=== PATIENT | female | born 1970 | race Caucasian/White ===

== ENCOUNTER 2019-11-22 17:53 | Observation (INO) | payer OTHER, SELFPAY ==
[2019-11-22] VITALS (11 sets, daily range): BP systolic 101–133; BP diastolic 57–98; PULSE 79–124; RESP 14–24; TEMP 36.8–36.9; O2SAT 98–100; BMI 30.9
--- NOTE | 2019-11-22 18:07 | ED_ITS ---
Entered by Niyah Batres, acting as scribe for Mena Wetzel HPI - Chest Pain General: Chief Complaint: Chest Pain Stated Complaint: high bp Time Seen by Provider: 11/22/19 18:06 Source: patient Mode of arrival: ambulatory Limitations: no limitations History of Present Illness: HPI narrative: 49 yo Female presents to ED with complaint of chest pain and chest heaviness. Pt states that she has had intermittent heaviness in her chest for a few weeks. Pt states that her chest pain feels like needles and lasts for a few minutes at a time. Pt states that the pain has increased over the past 2 weeks. MD complaint: chest pain and chest heaviness Onset (ago): week(s) Timing of current episode: episodic, increasing and still present Onset: during rest Pain location: left chest Pain radiation: left shoulder Quality: heaviness and other (needles) Relieving factors: nothing Exacerbating factors: nothing Associated symptoms: Reports diaphoresis, dyspnea and nausea; Deny palpitations, syncope or vomiting Review of Systems General: Reports: other (negative unless marked) Const: Reports: diaphoresis Eyes: Denies: change in vision or blurry vision ENMT: Denies: throat pain, painful swallowing, hoarseness, ear pain, ear discharge, Change in hearing or nasal discharge Card: Reports: chest pain; Denies: palpitations, irregular heart rhythm, syncope, pre-syncope, shortness of breath on exertion or shortness of breath when lying down Resp: Reports: shortness of breath GI: Reports: nausea; Denies: vomiting : Denies: flank pain, painful urination, urinary frequency, urinary urgency, decreased urine ouput, urinary incontinence or blood in urine Musc: Denies: neck pain, back pain, extremity pain, extremity swelling, joint pain, joint swelling, joint warmth or joint stiffness Skin/Breast: Denies: rash, skin tenderness or yellow skin Neuro: Denies: headache, numbness in extremities, weakness in extremities, changes in sensation, lack of coordination, difficulty walking, dizziness, vertigo or confusion Endo: Denies: excessive thirst, tired all the time, cold intolerance, excess sarahi sweating, flushing or hot flashes Atul/Lymph: Denies: easy bruising, easy bleeding, petechiae or enlarged lymph nodes All/Imm: Denies: hives, throat swelling, tongue swelling, facial swelling or acute wheezing PFSH ED PFSH: Statuses (acute, chronic, etc) shown below reflect problem list status as previously entered and may not be historically accurate Social History Smoking and tobacco status: current some day smoker cigarettes [ Other cigarette details: 1 cigarette every few months ] Alcohol intake: never Substance/Drug Use: never Physical Exam Const: COMMON NORMALS: no apparent distress, oriented x3, no limitations, healthy appearing and well nourished EXAM LIMITATIONS: no altered mental status GENERAL APPEARANCE: cooperative, well kempt and well developed ORIENTATION/CONSCIOUSNESS: Yes awake HENMT: COMMON NORMALS: normocephalic, head/scalp atraumatic, hearing grossly normal bilaterally, external ears normal, EAC's normal, external nose normal and moist oral mucous membranes HEAD & SCALP: normal to inspection, normocephalic and atraumatic FACE & SINUS: normal facial exam and face symmetric NOSE: external nose normal and nares normal EXTERNAL EAR: Yes external ears normal EXTERNAL AUDITORY CANAL: EAC's normal MOUTH: oral and palatal mucosa normal and tongue normal Eye: COMMON NORMALS: PERRL, EOMs intact bilaterally, conjunctivae normal and no scleral icterus GENERAL EYE: normal appearance of both eyes and normal light reflex CONJUNCTIVA: Yes conjunctivae normal SCLERA: sclerae normal CORNEA: Yes corneas normal PUPIL: Yes PERRL DIRECT OPHTHALMOSCOPY: Yes normal light reflex Neck/C-Spine: COMMON NORMALS: full ROM, no lymphadenopathy, supple, no meningeal signs and no JVD GENERAL: Yes normal visual inspection and Yes trachea midline CERVICAL SPINE: Yes cervical ROM normal Chest: COMMONS NORMALS: inspection of chest normal and palpation of chest normal Resp: COMMON NORMALS: normal respiratory effort, no retractions, no use of accessory muscles and clear to auscultation bilaterally EFFORT & INSPECTION: Yes able to speak in complete sentences AUSCULTATION: clear to auscultation bilaterally Cardio: COMMON NORMALS: no JVD, regular rate, regular rhythm, S1 normal heart sound, S2 normal heart sound, no gallops, no clicks, no murmurs and no rub JUGULAR VENOUS DISTENTION: no JVD RATE: regular rate RHYTHM: regular rhythm HEART SOUNDS: S1 normal and S2 normal GI: COMMON NORMALS: soft to palpation, non-tender, no hepatosplenomegaly and no masses INSPECTION: Yes normal to inspection PALPATION: Yes soft and Yes no hepatosplenomegaly : COMMON NORMALS: Yes no CVA tenderness BLADDER/KIDNEY EXAM: Yes no CVA tenderness Back/Pelvis: COMMON NORMALS: no CVA tenderness, thoracic and lumbar spine normal to inspection, no thoracic nor lumbar tenderness and thoraco-lumbar ROM normal Extremity: COMMON NORMALS: normal to inspection, full ROM, normal capillary refill, no joint enlargement, no clubbing, cyanosis or edema and no calf tenderness Neuro: COMMON NORMALS: oriented x3, CN's II-XII intact bilaterally, moves all extremities, no focal motor deficits and no sensory deficits noted MENINGEAL SIGNS: Yes no meningeal signs Psych: COMMON NORMALS: mental status grossly normal, thought process normal, cooperative, affect normal, speech normal and activity/motor behavior normal APPEARANCE: Yes well kempt SPEECH: Yes normal speech THOUGHT PROCESS: normal thought process Skin: COMMON NORMALS: no rashes or lesions noted, skin turgor normal, no jaundice, no petechiae and no mottling GENERAL SKIN EXAM: no rashes or lesions noted and turgor normal Course Vital Signs: Vital signs: Vital Signs Temperature 98.3 F 11/22/19 20:04 Pulse Rate 83 11/22/19 20:15 Respiratory Rate 15 11/22/19 21:31 Blood Pressure 106/76 11/22/19 20:15 Pulse Oximetry 98 11/22/19 20:04 MDM - Chest Pain MDM Narrative: Medical decision making narrative: Lorna is a nice 49-year-old female who comes in complaining of chest discomfort. This described as a pressure she has associated shortness of breath, diaphoresis and nausea. Her symptoms have been progressive and worsening over the past 2 weeks. Her heart score is a 4. Her EKG was tachycardic with T wave inversions in her anterior precordial leads but she was low risk per Wells criteria and had a negative d- dimer. First set of cardiac enzymes is negative. She is now complaining of a positional component to her chest pain. Because of her heart score though I believe she deserves a formal rule out and possible stress test. The case was reviewed with Dr. Matthews and he will come to evaluate the patient. Further care will be dictated by him. Lab Data: Attestation: I reviewed the patient's lab results. Labs: Lab Results 11/22/19 11/22/19 11/22/19 Range/Units 18:16 18:51 18:51 WBC 6.5 (4.0-10.0) 10^3/ uL RBC 5.00 (4.1-5.3) 10^6/u L Hgb 14.7 (11.5-15.3) g/dL Hct 45.9 (37.0-47.0) % MCV 91.8 (81-99) fL MCH 29.4 (28.0-34.0) pg MCHC 32.0 (30.0-36.0) g/dL RDW 12.8 (12.1-15.1) % Plt Count 221 (130-400) 10^3/c mm MPV 11.4 H (7.4-10.4) fL Neut % (Auto) 57.5 % Lymph % (Auto) 35.8 % [place] % (Auto) 5.7 % Eos % (Auto) 0.2 % Baso % (Auto) 0.6 % Neut # (Auto) 3.7 (1.8-7.7) 10^3/u L Lymph # (Auto) 2.3 (0.8-4.8) 10^3/u L [place] # (Auto) 0.4 (0.2-0.9) 10^3/u L Eos # (Auto) 0.0 (0.0-0.8) 10^3/u L Baso # (Auto) 0.0 (0.0-0.1) 10^3/u L Nucleated RBC % (a uto) 0 % Nucleated RBCs # 0.0 /100WBC D-Dimer (0-0.59) ug/mIFE U Sodium 141 (136-145) mmol/L Potassium 4.0 (3.5-5.1) mmol/L Chloride 103 (98-107) mmol/L Carbon Dioxide 24 (22-29) mmol/L Anion Gap 18.0 (5-19) BUN 11 (6-20) mg/dL Creatinine 0.8 (0.5-0.9) mg/dL GFR Calculation 75.9 L (90-130) mL/min Glucose 113 (65-115) mg/dL Calcium 10.1 (8.5-10.5) mg/dL Magnesium 2.0 (1.7-2.3) mg/dL Total Bilirubin 0.2 (0.15-1.2) mg/dL AST 17 (0-32) U/L ALT 19 (0-33) U/L Alkaline Phosphata se 125 H (35-105) IU/L Troponin T Baselin e 6 (0-10) ng/mL Total Protein 7.2 (6.6-8.7) g/dL Albumin 4.1 (3.5-5.2) g/dL Globulin 3.1 (1.3-4.6) g/dL Lipase 21 (13-60) U/L 11/22/19 Range/Units 18:51 WBC (4.0-10.0) 10^3/ uL RBC (4.1-5.3) 10^6/u L Hgb (11.5-15.3) g/dL Hct (37.0-47.0) % MCV (81-99) fL MCH (28.0-34.0) pg MCHC (30.0-36.0) g/dL RDW (12.1-15.1) % Plt Count (130-400) 10^3/c mm MPV (7.4-10.4) fL Neut % (Auto) % Lymph % (Auto) % [place] % (Auto) % Eos % (Auto) % Baso % (Auto) % Neut # (Auto) (1.8-7.7) 10^3/u L Lymph # (Auto) (0.8-4.8) 10^3/u L [place] # (Auto) (0.2-0.9) 10^3/u L Eos # (Auto) (0.0-0.8) 10^3/u L Baso # (Auto) (0.0-0.1) 10^3/u L Nucleated RBC % (a uto) % Nucleated RBCs # /100WBC D-Dimer 0.40 (0-0.59) ug/mIFE U Sodium (136-145) mmol/L Potassium (3.5-5.1) mmol/L Chloride (98-107) mmol/L Carbon Dioxide (22-29) mmol/L Anion Gap (5-19) BUN (6-20) mg/dL Creatinine (0.5-0.9) mg/dL GFR Calculation (90-130) mL/min Glucose (65-115) mg/dL Calcium (8.5-10.5) mg/dL Magnesium (1.7-2.3) mg/dL Total Bilirubin (0.15-1.2) mg/dL AST (0-32) U/L ALT (0-33) U/L Alkaline Phosphata se (35-105) IU/L Troponin T Baselin e (0-10) ng/mL Total Protein (6.6-8.7) g/dL Albumin (3.5-5.2) g/dL Globulin (1.3-4.6) g/dL Lipase (13-60) U/L EKG Data^: EKG 1: EKG interpretation date: 11/22/19 EKG interpretation time: 18:05 Interpretation: Normal sinus rhythm at 101 beats a minute, T wave inversions in V1 and V2, normal ME interval, normal QTC. No old for comparison. Discharge Plan Discharge Patient Disposition: Admitted As Inpatient Admit Provider: Alireza Matthews Discharge Date/Time: 11/22/19 20:40 Coding Level of Care Code ED Restaurant Bartender for Chg Fwd Exam Problem Focused The documentation recorded by the Medardo duarte Carmen, accurately reflects the service I personally performed and the decisions made by Rashard ivy Eli N Nov 22, 2019 17:53
--- NOTE | 2019-11-22 18:13 | XR_ITS ---
WS: [id number] ONE VIEW CHEST HISTORY: 49 years old Female with cough AP upright chest no comparison FINDINGS: No pneumothorax, pleural effusion, consolidation/atelectasis. Cardiomediastinal silhouette and pulmon mateusz vascular markings are unremarkable. Thoracic aorta atherosclerosis. No subdiaphragmatic free air. Prior cholecystectomy. Slight reverse S thoracic lumbar spine curvature. XR/XR chest 1V portable [id number] IMPRESSION: No acute cardiopulmonary findings.
[2019-11-22] MEDS: nitroglycerin 0.4 mg sublingual Tablet SUBLINGUAL ×3 (18:22→19:33)
[2019-11-22] MEDS: aspirin 325 mg Tablet PO (18:31)
[2019-11-22] MEDS: ondansetron 2 mg/ML SDV 2 mL 4 MG IVP (18:31)
[2019-11-22 18:39] LABS: Basophils % 0.6 %; Eosinophils % 0.2 %; Hematocrit 45.9 % (37.0-47.0); Hemoglobin 14.7 g/dL (11.5-15.3); Lymphocytes # 2.3 10^3/uL (0.8-4.8); Lymphocytes % 35.8 %; Mean Corpuscular Hemoglobin 29.4 pg (28.0-34.0); Mean Corpuscular Volume 91.8 fL (81-99); Mean Platelet Volume 11.4 fL (7.4-10.4); Monocytes # 0.4 10^3/uL (0.2-0.9); Monocytes % 5.7 %; Neutrophils # 3.7 10^3/uL (1.8-7.7); Neutrophils % 57.5 %; Nucleated Red Blood Cells % 0 %; Platelet Count 221 10^3/cmm (130-400); Red Cell Distribution Width 12.8 % (12.1-15.1); White Blood Count 6.5 10^3/uL (4.0-10.0)
[2019-11-22] MEDS: sodium chloride 0.9% 1,000 ML 999 ML IV (18:52)
[2019-11-22 19:19] LABS: Alanine Aminotransferase 19 U/L (0-33); Albumin Level 4.1 g/dL (3.5-5.2); Alkaline Phosphatase 125 IU/L (35-105); Aspartate Amino Transferase 17 U/L (0-32); Blood Urea Nitrogen 11 mg/dL (6-20); Calcium 10.1 mg/dL (8.5-10.5); Carbon Dioxide 24 mmol/L (22-29); Chloride 103 mmol/L (98-107); Globulin 3.1 g/dL (1.3-4.6); Glomerular Filtration Rate 75.9 mL/min (90-130); Glucose 113 mg/dL (65-115); Lipase 21 U/L (13-60); Sodium 141 mmol/L (136-145); Total Bilirubin 0.2 mg/dL (0.15-1.2); Total Protein 7.2 g/dL (6.6-8.7)
[2019-11-22 19:21] LABS: Troponin(5th) Baseline 6 ng/mL (0-10)
[2019-11-22] MEDS: nitroglycerin 1 gm/inch oint Pkt 1 INCH TOPICAL (19:52)
--- NOTE | 2019-11-22 20:14 | ECG_ITS ---
Measurements Intervals [place] Rate: 84 P: 37 [place]: 153 QRS: 39 QRSD: 76 T: 55 QT: 375 QTc: 444 SINUS RHYTHM WITH SINUS ARRHYTHMIA LOW QRS VOLTAGE IN PRECORDIAL LEADS [QRS DEFLECTION < 1.0 mV IN CHEST LEADS] MINIMAL ST DEPRESSION [0.025+ mV ST DEPRESSION] No previous ECG available for comparison Electronically Signed On 11-23-2019 0:22:52 CYLINDER PRESS OPERATOR HELPER by Azam Zarate M.D. [id number]
[2019-11-22 20:24] LABS: Troponin 5 2HR Delta 0 ABS# (0-10)
--- NOTE | 2019-11-22 21:25 | PM.HP ---
Providers/Chief Complaint Admitting Physician: Alireza Matthews MD Primary Care Provider: Crystal Payan Chief Complaint: CHEST PAIN History of Present Illness Lorna Agrawal is a 49 year old female with a past medical history of migraine headaches, GERD who presents to the emergency room due to complaints of a two-week history of chest pressure. Patient states that for the past 2 weeks she is had a chest pressure, substernal, lasting a few seconds to a few minutes, radiating to her left shoulder, chest pressure is like an aching pain, like something sitting on her chest, associate with shortness of breath, lightheadedness, dizziness, no nausea, no vomiting, no diaphoresis, chest pressures not associate with exertion, no alleviating factors, no exacerbating factors, patient has a history of GERD and does not think her symptoms relate to GERD, no burning sensation the back of her throat, no belching, no abdominal pain. Patient has a history of cholecystectomy. Denies any hemoptysis. Denies any calf pain or calf swelling. Denies a personal history of CAD. Denies history of stress testing. Patient states that this chest pressure symptoms have becoming more frequent, more severe, and her daughter is an RN who advised her mom to come to the hospital. Patient does not really want to be in the hospital, does not like seeing physicians, has not seen a physician in some time, she is originally from [facility], moved down to [place], she works as a recruitment specialist. Does smoke cigarettes, 1 cigarette every few months, no alcohol use, no drug use Review of Systems Const: Denies: fever, chills, fatigue or malaise Eyes: Denies: change in vision or blurry vision ENMT: Denies: nasal congestion Card: Reports: chest pain; Denies: irregular heart rhythm, swelling of feet/ankles or shortness of breath on exertion Resp: Reports: shortness of breath; Denies: productive cough, non-productive cough or wheezing GI: Denies: abdominal pain, nausea, vomiting, vomiting blood, diarrhea, constipation, blood in stool or black tarry stool : Denies: flank pain, painful urination or urinary frequency Musc: Denies: neck pain or back pain Skin/Breast: Denies: rash Neuro: Reports: dizziness; Denies: headache or vertigo Psych: Denies: anxiety or depression Endo: Denies: excessive urination or excessive thirst Medications/Allergies Allergies Allergy/AdvReac Type Severity Reaction Status Date / Time No Known Allergies Allergy Verified 11/22/19 21:36 Additional Medication Information Additional Medication Information: Effexor 75 mg 3 capsules 1 time daily Emgality Sumatriptan 100 mg 1 tablet 1 tablet daily as needed Benadryl 25 mg once tablet daily as needed Magnesium Singulair 10 mg 1 tablet every evening Omeprazole 40 mg 1 time daily Zyrtec Compazine 10 mg 1 tablet as needed PFSH Acute PFSH: Statuses (acute, chronic, etc) shown below reflect problem list status as previously entered and may not be historically accurate Medical History (Updated 11/22/19 @ 21:34 by Alireza Matthews MD) Chest pain (Acute) GERD (gastroesophageal reflux disease) (Acute) Migraine (Acute) Migraines (Acute) Surgical History (Updated 11/22/19 @ 21:34 by Alireza Matthews MD) H/O: hysterectomy (Acute) Hx of appendectomy (Acute) S/P cholecystectomy (Acute) Family History (Updated 11/22/19 @ 21:35 by Alireza Matthews MD) Other CAD (coronary artery disease) Social History (Updated 11/22/19 @ 21:35 by Alireza Matthews MD) Smoking and tobacco status: current some day smoker cigarettes [ Other cigarette details: 1 cigarette every few months ] Alcohol intake: never Substance/Drug Use: never Vitals/I&O/Wt Last Vital Signs Temp 98.3 F 11/22/19 20:04 Pulse 83 11/22/19 20:15 Resp 23 H 11/22/19 20:15 BP 106/76 11/22/19 20:15 Pulse Ox 98 11/22/19 20:04 Weight last 48 hrs Weight 81.647 kg Physical Exam Const: COMMON NORMALS: no apparent distress and oriented x3 GENERAL APPEARANCE: cooperative and comfortable HENMT: COMMON NORMALS: normocephalic HEAD & SCALP: normocephalic Eye: COMMON NORMALS: PERRL, EOMs intact bilaterally and no papilledema GENERAL EYE: normal appearance of both eyes PUPIL: Yes PERRL DIRECT OPHTHALMOSCOPY: Yes no papilledema Neck/C-Spine: COMMON NORMALS: full ROM, no lymphadenopathy, no JVD and thyroid normal THYROID: thyroid normal Lymph: LYMPHATIC: no lymphadenopathy noted Chest: COMMONS NORMALS: inspection of chest normal and palpation of chest normal Resp: COMMON NORMALS: normal respiratory effort, no retractions, no use of accessory muscles and clear to auscultation bilaterally AUSCULTATION: clear to auscultation bilaterally Cardio: COMMON NORMALS: no JVD, regular rate, regular rhythm, S1 normal heart sound, S2 normal heart sound, no gallops, no clicks and no murmurs RATE: regular rate RHYTHM: regular rhythm HEART SOUNDS: S1 normal and S2 normal GI: COMMON NORMALS: normal to inspection, nondistended, normoactive bowel sounds, soft to palpation, non-tender and no hepatosplenomegaly PALPATION: Yes soft and Yes no hepatosplenomegaly Extremity: COMMON NORMALS: normal to inspection, full ROM and no pedal edema Neuro: COMMON NORMALS: oriented x3, CN's II-XII intact bilaterally, moves all extremities and no focal motor deficits Psych: COMMON NORMALS: mental status grossly normal, thought process normal and cooperative THOUGHT PROCESS: normal thought process Data : 11/22/19 18:16 11/22/19 18:51 A&P Assessment and plan (1) Chest pain: -Patient's symptoms sound a lot like cardiac in etiology -Risk factors include smoking history, family history of CAD -Baseline troponin is 6, 120 minutes 6, delta 0 -Patient EKG shows T wave inversions V1 to V2 -Patient continues to have intermittent episodes of chest pressure Plan: -ACS protocol -Aspirin, statin, Coreg -Morphine -Nitropaste -Monitor telemetry -6-hour troponin, serial EKGs -We will order cardiac echocardiogram -If work-up is unremarkable, patient can be discharged home with outpatient stress test -If patient continues to have chest pain, might benefit from a stress test as inpatient Status: Acute Code(s): R07.9 - Chest pain, unspecified (2) GERD (gastroesophageal reflux disease): Status: Acute Code(s): K21.9 - Gastro-esophageal reflux disease without esophagitis (3) Migraines: -hold sumatriptan given concerns for cardiac related chest pain -coutinue benadry prn, compazine prn, -effexor Status: Acute Code(s): G43.909 - Migraine, unspecified, not intractable, without status migrainosus Attestations Medical Necessity Statement*: Patient requires hospitalization, outpatient with observation, for chest pain Coding Level of Care Code Acute Counselor Aide for Chg Fwd Diagnoses Chest pain R07.9 GERD (gastroesophageal reflux disease) K21.9 Migraines G43.909
[2019-11-22] MEDS: sodium chloride 0.9% 1,000 ML 100 ML IV (21:30)
[2019-11-22] MEDS: carvedilol 3.125 mg Tablet PO (21:31)
[2019-11-22] MEDS: morphine 4 mg/mL SDV 1 mL 2 MG IVP (21:31)
--- NOTE | 2019-11-22 22:41 | PC.NURSE ---
Dr. Matthews notified of patient having chest pain 610 after receiving Morphine and GI cocktail.
[2019-11-22 23:00] LABS: Thyroid Stimulating Hormone 1.36 uIU/mL (0.27-4.20)
--- NOTE | 2019-11-22 23:07 | PC.NURSE ---
Dr. Matthews notified of patient stating that her chest pain is getting worse. Ordered to get EKG and remove nitropaste and start patient on nitro drip.
[2019-11-22] MEDS: nitroglycerin drip 50 MG/250 ML PREMIX IV (23:35)
--- NOTE | 2019-11-22 23:42 | PC.NURSE ---
Blood pressure currently 103/61. Nitro drip started at 5 mcg/min per order. Will continue to monitor.
[2019-11-23] VITALS (22 sets, daily range): BP systolic 90–117; BP diastolic 61–80; PULSE 67–140; RESP 11–30; TEMP 36.8; O2SAT 93–98
--- NOTE | 2019-11-23 00:02 | PC.NURSE ---
Patient states her pain is now better at 3/10. Nitro drip turned up to 10 mcg/min. Blood pressure 113/71. Will continue to monitor.
--- NOTE | 2019-11-23 00:14 | ECG_ITS ---
Measurements Intervals [place] Rate: 80 P: 66 OR: 146 QRS: 78 QRSD: 80 T: 83 QT: 406 QTc: 470 SINUS RHYTHM No previous ECG available for comparison Electronically Signed On 11-23-2019 0:23:03 STUBBER by Azam Zarate M.D. [id number]
--- NOTE | 2019-11-23 00:24 | PC.NURSE ---
Dr. Matthews notified that nitro drip was running at 10 mcg/min. It was turned down to 5 mcg/min due to a blood pressure of 90/60. Patient states that her pain is 3/10 and states that is a tolerable level for her. Will continue to monitor pain and blood pressure.
[2019-11-23] MEDS: ondansetron 2 mg/ML SDV 2 mL 4 MG IVP ×2 (00:48→11:54)
[2019-11-23 01:35] LABS: Troponin 5 6HR Delta 0 ng/L (0-12)
--- NOTE | 2019-11-23 02:26 | PC.NURSE ---
Patient is resting comfortably with eyes closed. Nitro drip is still running at 5 mcg/min. Blood pressure is 100/60. Will continue to monitor.
--- NOTE | 2019-11-23 04:03 | PC.NURSE ---
Nitro drip shut off. Patient is resting comfortably with eyes closed. Blood pressure is 98/61. Will continue to monitor.
--- NOTE | 2019-11-23 04:44 | PC.NURSE ---
Patient was awoken to get vital signs. Patient is now complaining of 5/10 chest pain. Nitro drip restarted at 5 mcg/min.
[2019-11-23 05:12] LABS: Basophils # 0.1 10^3/uL (0.0-0.1); Basophils % 0.7 %; Eosinophils % 0.1 %; Hematocrit 40.3 % (37.0-47.0); Hemoglobin 12.8 g/dL (11.5-15.3); Lymphocytes # 3.4 10^3/uL (0.8-4.8); Mean Corpuscular HGB Conc 31.8 g/dL (30.0-36.0); Mean Corpuscular Hemoglobin 30.1 pg (28.0-34.0); Mean Corpuscular Volume 94.8 fL (81-99); Mean Platelet Volume 11.4 fL (7.4-10.4); Monocytes # 0.5 10^3/uL (0.2-0.9); Monocytes % 6.8 %; Neutrophils # 3.4 10^3/uL (1.8-7.7); Neutrophils % 46.3 %; Nucleated Red Blood Cells % 0 %; Platelet Count 217 10^3/cmm (130-400); Red Blood Count 4.25 10^6/uL (4.1-5.3); Red Cell Distribution Width 13.1 % (12.1-15.1); White Blood Count 7.4 10^3/uL (4.0-10.0)
[2019-11-23] MEDS: sodium chloride 0.9% 1,000 ML 100 ML IV (05:37)
--- NOTE | 2019-11-23 05:38 | PC.NURSE ---
Patient was resting with eyes closed. Nurse woke patient to check name on braclet for a medication. Patient was asked her pain level when awakened and stated 3. Blood pressure is 102/67. Nitro drip running at 5 mcg/min.
[2019-11-23 05:44] LABS: Blood Urea Nitrogen 10 mg/dL (6-20); Calcium 8.9 mg/dL (8.5-10.5); Carbon Dioxide 25 mmol/L (22-29); Chloride 107 mmol/L (98-107); Glomerular Filtration Rate 75.9 mL/min (90-130); Glucose 100 mg/dL (65-115); Osmolality Calculated 290 mOsm/kg (285-295); Sodium 142 mmol/L (136-145)
[2019-11-23 05:48] LABS: Amphetamines Screen Urine Negative (Negative); Barbiturates Screen Urine Positive (Negative); Benzodiazepines Screen Urine Negative (Negative); Cocaine Screen Urine Negative (Negative); PCP Screen Urine Negative (Negative); THC Screen Urine Negative (Negative)
[2019-11-23 06:09] LABS: Erythrocyte Sedimentation Rate 9 mm/hr (0-15)
[2019-11-23] MEDS: aspirin 81 mg EC Tablet PO (08:15)
[2019-11-23] MEDS: pantoprazole DR 40 mg Tablet PO (08:15)
[2019-11-23] MEDS: venlafaxine ER (24HR) 75 mg Capsule 225 MG PO (08:16)
--- NOTE | 2019-11-23 11:20 | PC.NURSE ---
patient complains of 8/10 chest pain with nitro drip in place when placed to left side for ecco EKG performed and Dr powell notified NO new orders at this time Dr. Zarate is to see patient.
--- NOTE | 2019-11-23 11:24 | ECG_ITS ---
Measurements Intervals [place] Rate: 78 P: 60 [place]: 141 QRS: 57 QRSD: 94 T: 65 QT: 387 QTc: 443 SINUS RHYTHM WITH SINUS ARRHYTHMIA MODERATE T-WAVE ABNORMALITY, CONSIDER ANTERIOR ISCHEMIA [-0.1+ mV T WAVE IN V3/V4] Compared to ECG 11/23/2019 00:00:43 T-wave abnormality now present Possible ischemia now present Electronically Signed On 11-23-2019 22:23:28 ENVIRONMENTAL PROGRAMS MANAGER by Azam Zaraet M.D. [id number]
--- NOTE | 2019-11-23 11:26 | P.CONIM_ITS ---
Providers/Reason For Consult Consulting Physican/Specialty*: Cardiology Reason for Consult*: Chest pain Attending Physician: Elias Escobar MD Primary Care Provider: Crystal Payan History of Present Illness History of Present Illness Lorna Agrawal is a 49 year old female past medical history significant for continuous tobacco abuse, according to the patient she has slowed down and can take 1 to 2 cigarettes at occasions before she used to smoke pack per day with [id number] of smoking. Her other problems are family history of coronary artery disease hypertension hyperlipidemia and GERD. She is not sure about her cholesterol. According to her for the past 2 to 3 weeks she has been noticing off-and-on chest pressure initially upon exertion along with shortness of breath and sometimes at rest until yesterday when it became more constant comes and goes feels like as somebody is clenching her chest. In the emergency room she responded well to nitroglycerin. She was started on nitro drip. This morning when nitro drip was being titrated off she started having chest pain again. I was called for consult. When I saw patient in the room she was tearful and holding her chest as pain was 9/10, I do not have any prior EKG for comparison but she has T wave inversion in V1 and V2. She denies more than usual stress at home. Echo by bedside did not show any pericardial effusion or significant wall motion abnormality. Our initial plan was to stress her however she continues to have active chest pain on nitro drip with history of smoking and EKG changes we decided to proceed with coronary angiogram now. Patient has been explained all risk benefit and alternative for the procedure including emergent CABG bleeding and worse case scenario . She would like to proceed with it. I have asked her if she would like me to talk to any family members. She says that she will speaks for herself and would not like me to inform her daughter in [place] however her son who is in [place] can be discussed with. Review of Systems General: Reports: other (negative unless marked) Const: Reports: diaphoresis; Denies: fever, chills, fatigue or malaise Eyes: Denies: change in vision or blurry vision ENMT: Denies: throat pain, painful swallowing, hoarseness, ear pain, ear discharge, change in hearing, nasal discharge or nasal congestion Card: Reports: chest pain; Denies: palpitations, irregular heart rhythm, swelling of feet/ankles, syncope, pre-syncope, shortness of breath on exertion or shortness of breath when lying down Resp: Reports: shortness of breath; Denies: productive cough, non-productive cough or wheezing GI: Denies: abdominal pain, nausea, vomiting, vomiting blood, diarrhea, constipation, blood in stool or black tarry stool : Denies: flank pain, painful urination, urinary frequency, urinary urgency, decreased urine ouput, urinary incontinence or blood in urine Musc: Denies: neck pain, back pain, extremity pain, extremity swelling, joint pain, joint swelling, joint warmth or joint stiffness Skin/Breast: Denies: rash, skin tenderness or yellow skin Neuro: Reports: dizziness; Denies: headache, numbness in extremities, weakness in extremities, changes in sensation, lack of coordination, difficulty walking, vertigo or confusion Psych: Denies: anxiety or depression Endo: Denies: excessive urination, excessive thirst, tired all the time, cold intolerance, excessive sweating, flushing or hot flashes Atul/Lymph: Denies: easy bruising, easy bleeding, petechiae or enlarged lymph nodes All/Imm: Denies: hives, throat swelling, tongue swelling, facial swelling or acute wheezing Meds/Allergies Home Medications and Allergies Home Medications Medication Instructions Recorded Confirmed Type Benadryl 25 mg PO PRN PRN 11/22/19 11/22/19 History Compazine 10 mg PO PRN PRN 11/22/19 11/22/19 History Effexor XR 225 mg PO DAILY 11/22/19 11/22/19 History Emgality Pen mg SUBCUT 11/22/19 History Singulair 10 mg PO QPM 11/22/19 11/22/19 History Zyrtec 20 mg PO DAILY 11/22/19 11/22/19 History magnesium 500 mg PO DAILY 11/22/19 11/22/19 History sumatriptan 100 mg PO DAILY PRN 11/22/19 11/22/19 History Allergies Allergy/AdvReac Type Severity Reaction Status Date / Time No Known Allergies Allergy Verified 11/22/19 21:36 Current Medications Current Medications Generic Name Dose Route Start Last Admin Trade Name Freq PRN Reason Stop Dose Admin Aspirin 81 mg 11/23/19 09:00 11/23/19 08:15 Aspirin Ec PO 81 mg DAILY HEIDI Administration Carvedilol 3.125 mg 11/22/19 21:05 11/22/19 21:31 Coreg PO 3.125 mg BID HEIDI Administration Sodium Chloride 1,000 mls @ 100 mls/hr 11/22/19 19:00 11/23/19 05:37 Sodium Chloride 0.9% IV 100 mls/hr .Q10H HEIDI Administration Sodium Chloride 1,000 mls @ 100 mls/hr 11/22/19 20:04 11/23/19 05:38 Sodium Chloride 0.9% IV Not Given .Q10H HEIDI Nitroglycerin/Dextrose 50 mg in 250 mls @ 0 mls/hr 11/22/19 23:15 11/23/19 04:44 Nitroglycerin Drip IV 5 mcg/min .Q0M HEIDI 1.5 mls/hr Titration Protocol Per Protocol Morphine Sulfate 2 mg 11/22/19 21:14 11/22/19 21:31 Morphine IVP 2 mg Q4H PRN Administration SEVERE PAIN Nitroglycerin 0.4 mg 11/22/19 18:14 11/22/19 19:33 Nitrostat SUBLINGUAL 1 tab Q5M PRN Administration CHEST PAIN Ondansetron HCl 4 mg 11/22/19 20:04 11/23/19 00:48 Zofran IVP 4 mg Q6H PRN Administration NAUSEA AND VOMITING Pantoprazole Sodium 40 mg 11/23/19 09:00 11/23/19 08:15 Protonix PO 40 mg DAILY HEIDI Administration Venlafaxine HCl 225 mg 11/23/19 09:00 11/23/19 08:16 Effexor Xr PO 225 mg DAILY HEIDI Administration Additional Medication Information Effexor 75 mg 3 capsules 1 time daily Emgality Sumatriptan 100 mg 1 tablet 1 tablet daily as needed Benadryl 25 mg once tablet daily as needed Magnesium Singulair 10 mg 1 tablet every evening Omeprazole 40 mg 1 time daily Zyrtec Compazine 10 mg 1 tablet as needed PFSH Acute PFSH: Statuses (acute, chronic, etc) shown below reflect problem list status as previously entered and may not be historically accurate Medical History (Updated 11/23/19 @ 15:51 by Elias Escobar MD) Chest pain GERD (gastroesophageal reflux disease) Migraine Migraines Prinzmetal angina Tobacco abuse Surgical History H/O: hysterectomy Hx of appendectomy S/P cholecystectomy Family History Other CAD (coronary artery disease) Social History Smoking and tobacco status: current some day smoker cigarettes [ Other cigarette details: 1 cigarette every few months ] Alcohol intake: never Vitals/I&O/Wt Last Vital Signs Temp 98.3 F 11/23/19 04:00 Pulse 79 11/23/19 10:00 Resp 24 H 11/23/19 04:00 BP 117/76 11/23/19 10:00 Pulse Ox 98 11/23/19 04:00 11/22/19 11/23/19 11/23/19 22:59 06:59 14:59 Intake Total 1018.392 / 1018.392 240 / 240 Output Total 600 / 600 Balance 418.392 / 418.392 240 / 240 Weight last 48 hrs Weight 186 lb 4.8 oz Weight 180 lb Physical Exam Narrative: EXAM NARRATIVE: GENERAL: Patient is alert, awake and oriented x3. NECK: No jugular vein distension. HEENT: No cyanosis. No icterus. No pallor. HEART: Regular S1 and S2. No murmur, rub or gallop. LUNGS: Clear to auscultate bilaterally. ABDOMEN: Soft, nontender and nondistended. Positive bowel sounds. No guarding, rebound or tenderness. CENTRAL NERVOUS SYSTEM: Grossly nonfocal. EXTREMITIES: Lower extremities without edema bilaterally. A&P Assessment and plan (1) Chest pain: Patient chest pain is suspicious for unstable angina. She has abnormal EKG with chest pain once off nitroglycerin. She has history of tobacco abuse. Since she continued to have chest pain off and on basis and not been controlled with medicine we will proceed with coronary angiogram. Further plan will be advised as per progress of the patient. Status: Acute Code(s): R07.9 - Chest pain, unspecified (2) Tobacco abuse: Advised to quit smoking. Status: Acute Code(s): Z72.0 - Tobacco use Consult Attestations Medical Necessity Statement: Patient require continuation hospitalization for above defined care. Coding Level of Care Code New Pt Acute Cnc Manufacturing Engineer for Chg Fwd Patient Type New History Expanded Problem Focused Exam Expanded Problem Focused Medical Decision Making Moderate Complexity Diagnoses Chest pain R07.9 Tobacco abuse Z72.0
--- NOTE | 2019-11-23 11:48 | XACV_ITS ---
Exam Room: [facility] [place] Ht: 163 cm Wt: 84 kg BSA: 1.98 m2 Gender: Female : 1970 Exam Priority: Routine Procedure(s): Procedure Description: Diagnostic procedure Procedure Description: Left Heart Catheterization Diagnostic Findings No significant disease noted in the Left Main, LAD, Circumflex, or RCA coronary arteries. Coronary angiography shows right dominance. Conclusions No significant disease noted in the Left Main, LAD, Circumflex, or RCA coronary arteries. Reason for coronary angiogram: Chest pain with abnormal EKG suspicious for unstable angina. Recommendations Continue current medical management and risk factor modification. Diagnostic RX Recommendation: none Clinical Evaluation EBL: 5mL-10mL Procedural Details Procedure Consent Obtained. Admit Source: In Patient. Pre-Procedure Time Out. Identified patient by full name and date of as verbalized by the patient/guarantor. Does the consent match the physician's order: Yes. Accurate & Complete Informed Consent: Yes. Inpatient/Outpatient History & Physical on Chart: Yes. If H&P is completed, is and addenduem needed: N/A; If yes, is the addendum complete: N/A. Visualize and Verify Site with Patient/Guarantor: N/A. Relevant Radiology Images available: N/A. Pre-op teaching completed and patient verbalized understanding. The risks, benefits, and alternatives of sedation and/or procedure were discussed by physician. The patient agrees to continue. Procedure started. Correct patient, site and procedure confirmed by cath team. PERRLA. Strong, equal hand sand technician bilaterally. Lungs clear x 5 lobes. IV Site on Arrival: 20 gauge in the left anticubital. Pre Procedural Pulses: bilateral dorsalis pedis was 2+. Pre Procedural Pulses: bilateral posterior tibial was 2+. Pre Procedural Pulses: bilateral radial was 2+. Oxygen started at 2liters/min via nasal canula. bilateral groins was prepped with chloroprep then draped in the usual sterile fashion. right radial was prepped with chloroprep then draped in the usual sterile fashion. Physician notified. Baseline sample Acquired. HR: 77 BPM. Physician arrived. Immediate Pre-Procedure Time Out. Physician scrubbed in. Correct Patient: Yes; Correct Procedure: Yes; Correct Site: Yes; Correct Patient Position: Yes; Correct Supplies: Yes; Dried Flammable Prep: Yes; Blood Products Available: N/A;. Lidocaine 1% infiltrated to the right radial. Arterial access obtained. A 5 maltese TIG catheter in over wire. wire out. Multiple views taken of right coronary artery. Catheter out. A 5 maltese Casey catheter in over wire. wire out. A 5 maltese JL4 catheter in over wire. 6 maltese XB 3 guide catheter was inserted over the wire. Multiple views taken of left coronary artery. TR band placed. Hemostasis obtained. Post Procedure: Pulses reassessed and unchanged. PERRLA. Strong, equal hand sand technician bilaterally. Contrast type used: Omnipaque 300 mgI/mL, 500 mL bottle. Contrast Material : Omnipaque 93 ml. Medication's Wasted: Lidocaine 1% = 18 mL. Medication's Wasted: Nitro = 49.8 mg. Medication's Wasted: Heparin = 1000 units. Total IV fluids: 100 mL. A TR Band was successful obtaining hemostatsis at the Right Radial artery insertion site. [facility] Clinical Fraility Score: 3: Managing Well. Milling Planer Operator Indications: New Onset Angina. Chest Pain Symptom Assessment: Typical Angina Symptoms. Cardiovascular Instability: No. Post-op diagnosis: normal CAD and CAD spasm. Complications: none. Estimated blood loss: 5mL-10mL. Procedure completed. Patient transferred by bed to 1st floor. Vital chart was stopped. Site: Right Radial artery Sheath Size: 6 Fr Hemostasis Method: TR Band Hemostasis Success: Successful Procedure Medications Start: 12:51 PM Stop: 12:51 PM Medication: Versed Amount: 1 mg Route: I.V. Start: 12:52 PM Stop: 12:52 PM Medication: Fentanyl Amount: 50 mcg Route: I.V. Start: 1:05 PM Stop: 1:05 PM Medication: Heparin Amount: 5000 units Route: I.V. Start: 1:09 PM Stop: 1:09 PM Medication: Versed Amount: 1 mg Route: I.V. Start: 1:09 PM Stop: 1:09 PM Medication: Fentanyl Amount: 50 mcg Route: I.V. I, the attending physician, have reviewed and verified all procedure medications. Yes, all medications given per verbal order Report Signatures Finalized by:Azam Zarate MD on 12/07/2019 6:16:15 PM
[2019-11-23] MEDS: metoprolol tartrate 25 mg Tablet PO (11:54)
--- NOTE | 2019-11-23 12:01 | PM.PN ---
Subjective Subjective: Interval history: Patient was admitted overnight. H&P and labs noted. On evaluation this morning patient is still on nitro drip running at 5. Patient is still complaining of occasional chest pressure-like discomfort which gets aggravated on movement. During my interview patient had an episode of mild chest pain and EKG was done which was unchanged. Patient complains of mild nausea but denies any dizziness or vomiting or change in his bowel movements or dysuria. Patient denies of having any flulike symptoms. Medications: Medication Review Details: Effexor 75 mg 3 capsules 1 time daily Emgality Sumatriptan 100 mg 1 tablet 1 tablet daily as needed Benadryl 25 mg once tablet daily as needed Magnesium Singulair 10 mg 1 tablet every evening Omeprazole 40 mg 1 time daily Zyrtec Compazine 10 mg 1 tablet as needed Vitals/I&O/Wt Last Vital Signs Temp 98.3 F 11/23/19 04:00 Pulse 79 11/23/19 10:00 Resp 24 H 11/23/19 04:00 BP 117/76 11/23/19 10:00 Pulse Ox 98 11/23/19 04:00 11/22/19 11/23/19 11/23/19 22:59 06:59 14:59 Intake Total 1018.392 / 1018.392 240 / 240 Output Total 600 / 600 Balance 418.392 / 418.392 240 / 240 Weight last 48 hrs Weight 84.504 kg Weight 81.647 kg Physical Exam Narrative: EXAM NARRATIVE: General: Anxious, distress due to chest pressure, AO x3 HEENT: PERRLA, pupils bilaterally equal and reactive Chest: Normal vesicular breath sounds, no added sounds, equal good air entry bilaterally CVS: S1-S2 regular, no murmurs, no tachycardia, no gallops, no rubs Abdomen: Soft, nontender, no organomegaly, bowel sounds present Neuro: No focal deficits, no facial deformity, AO x3, power 5/5 in all limbs Data : 11/23/19 04:57 11/23/19 04:57 A&P Assessment and plan (1) Chest pain: Her symptoms are suggestive of cardiac etiology. Though anxiety is also playing some part. Patient does have significant risk factors of being a former smoker and family history of CAD. We will continue nitro drip at the current dose for now. We will start patient on morphine 1 mg every 4 hours as needed. We will continue aspirin and statin as already started last night. Will change from Coreg to metoprolol 25 mg twice daily for better antianginal effect. Due to continued symptoms even though being on nitro drip will consult cardiology for possible cardiac catheterization. We will add on HbA1c and lipid panel to morning's lab. Echocardiogram done but results awaited. Monitor vitals. Status: Acute Code(s): R07.9 - Chest pain, unspecified (2) GERD (gastroesophageal reflux disease): Status: Acute Code(s): K21.9 - Gastro-esophageal reflux disease without esophagitis (3) Migraines: -hold sumatriptan given concerns for cardiac related chest pain -coutinue benadryl prn, compazine prn, -effexor Status: Acute Code(s): G43.909 - Migraine, unspecified, not intractable, without status migrainosus Additional A&P Information Full code We will keep n.p.o. for now for possible cardiac catheterization later in the day today. Lovenox for DVT prophylaxis. Discussed in detail with patient regarding need of further cardiac evaluation. Patient states she would want to either have her test done today or she would come as an outpatient for cardiac stress test. I did vocational rehabilitation counselor and stress with the patient that given her symptoms which are ongoing even though she is on nitro drip her getting discharged without any further cardiac evaluation could be catastrophic. Patient for now has agreed to stay and have cardiology evaluation. Attestations Medical Necessity Statement*: Needs further hospitalization for management of unstable angina Time Spent in Patient Care: Greater than 35 minutes (>than 50% of time spent in counselling and/or direct pt care on unit). Coding Level of Care Code Acute Machine Container Washer for Aylin Stephens Diagnoses Chest pain R07.9 GERD (gastroesophageal reflux disease) K21.9 Migraines G43.909
[2019-11-23] MEDS: diphenhydrAMINE 50 mg Capsule PO (12:02)
--- NOTE | 2019-11-23 12:15 | PC.NURSE ---
Dr. kwok at bed side discussing POC and procedure with Patient
--- NOTE | 2019-11-23 14:09 | P.DS_ITS ---
Discharge Providers Date of Admission: 11/22/19 19:35 Date of Discharge: November 23, 2019 Attending Provider at Admission: Alireza Matthews MD Attending Provider at Discharge: Elias Escobar MD Consults: Cardiology: Dr. Zarate Primary Care Provider: Crystal Payan Diagnoses at Discharge Discharge Diagnosis (1) Chest pain: Status: Acute (2) Tobacco abuse: Status: Acute (3) Prinzmetal angina: Status: Acute Reason for Visit Reason for Visit: Reason For Visit: CHEST PAIN Hospital Course Discharge Summary: Ms. Agrawal was admitted overnight with complaining of chest discomfort which is more like pressure-like feeling. Patient overnight was on nitro drip and symptoms would aggravate on weaning of the nitro drip. Patient stayed hemodynamically stable. As patient continued to have the symptoms cardiology was consulted and she underwent cardiac catheterization which revealed normal coronaries. Given her symptoms relief by nitrate drip Prinzmetal angina is a possibility for which she is being discharged on Imdur daily. Patient is been discharged in hemodynamically stable condition with advised to follow-up with her primary care physician within next 2 weeks. Please see my note from today for further details. Physical Exam Narrative: EXAM NARRATIVE: General: Anxious, distress due to chest pressure, AO x3 HEENT: PERRLA, pupils bilaterally equal and reactive Chest: Normal vesicular breath sounds, no added sounds, equal good air entry bilaterally CVS: S1-S2 regular, no murmurs, no tachycardia, no gallops, no rubs Abdomen: Soft, nontender, no organomegaly, bowel sounds present Neuro: No focal deficits, no facial deformity, AO x3, power 5/5 in all limbs Discharge Data Data Completed and Pending: Completed Studies During Hospitalization Category Date Time Status XR chest 1V ailin ble [id number] Stat Exams 11/22/19 18:13 Completed Pending at discharge Category Date Time Status ROCK CUTTER request for service Routin e Exams 11/23/19 11:48 Ordered Hemoglobin A1C Ro utine Lab 11/24/19 04:00 Ordered Lipid Profile w/V LDL Routine Lab 11/24/19 04:00 Ordered CV echo complete* [id number] Routine Ultrasound 11/23/19 21:05 Taken Labs from last 24 hours 11/23/19 11/23/19 11/23/19 05:00 04:57 04:57 WBC 7.4 RBC 4.25 Hgb 12.8 Hct 40.3 MCV 94.8 MCH 30.1 MCHC 31.8 RDW 13.1 Plt Count 217 MPV 11.4 H Neut % (Auto) 46.3 Lymph % (Auto) 46.0 [place] % (Auto) 6.8 Eos % (Auto) 0.1 Baso % (Auto) 0.7 Neut # (Auto) 3.4 Lymph # (Auto) 3.4 [place] # (Auto) 0.5 Eos # (Auto) 0.0 Baso # (Auto) 0.1 Nucleated RBC % (a uto) 0 Nucleated RBCs # 0.0 ESR D-Dimer Sodium 142 Potassium 4.0 Chloride 107 Carbon Dioxide 25 Anion Gap 14.0 BUN 10 Creatinine 0.8 GFR Calculation 75.9 L Glucose 100 Calculated Osmolal ity 290 Calcium 8.9 Magnesium Total Bilirubin AST ALT Alkaline Phosphata se Troponin I 6 Hour Troponin I Hi Sens Del Troponin T Baselin e Troponin T 120 Min [place] Troponin T C-Reactive Protein Total Protein Albumin Globulin Lipase TSH Urine Opiates Scre en Positve Ur Barbiturates Sc reen Positive H Ur Phencyclidine S crn Negative Ur Amphetamines Sc reen Negative U Benzodiazepines Scrn Negative Urine Cocaine Scre en Negative U Marijuana (THC) Screen Negative 11/23/19 11/23/19 11/22/19 04:57 00:48 20:05 WBC RBC Hgb Hct MCV MCH MCHC RDW Plt Count MPV Neut % (Auto) Lymph % (Auto) [place] % (Auto) Eos % (Auto) Baso % (Auto) Neut # (Auto) Lymph # (Auto) [place] # (Auto) Eos # (Auto) Baso # (Auto) Nucleated RBC % (a uto) Nucleated RBCs # ESR 9 D-Dimer Sodium Potassium Chloride Carbon Dioxide Anion Gap BUN Creatinine GFR Calculation Glucose Calculated Osmolal ity Calcium Magnesium Total Bilirubin AST ALT Alkaline Phosphata se Troponin I 6 Hour 6.00 Troponin I Hi Sens Del 0 Troponin T Baselin e Troponin T 120 Min [place] band 6.00 Delta Troponin T 0 C-Reactive Protein Total Protein Albumin Globulin Lipase TSH Urine Opiates Scre en Ur Barbiturates Sc reen Ur Phencyclidine S crn Ur Amphetamines Sc reen U Benzodiazepines Scrn Urine Cocaine Scre en U Marijuana (THC) Screen 11/22/19 11/22/19 11/22/19 18:51 18:51 18:51 WBC RBC Hgb Hct MCV MCH MCHC RDW Plt Count MPV Neut % (Auto) Lymph % (Auto) [place] % (Auto) Eos % (Auto) Baso % (Auto) Neut # (Auto) Lymph # (Auto) [place] # (Auto) Eos # (Auto) Baso # (Auto) Nucleated RBC % (a uto) Nucleated RBCs # ESR D-Dimer 0.40 Sodium 141 Potassium 4.0 Chloride 103 Carbon Dioxide 24 Anion Gap 18.0 BUN 11 Creatinine 0.8 GFR Calculation 75.9 L Glucose 113 Calculated Osmolal ity Calcium 10.1 Magnesium 2.0 Total Bilirubin 0.2 AST 17 ALT 19 Alkaline Phosphata se 125 H Troponin I 6 Hour Troponin I Hi Sens Del Troponin T Baselin e 6 Troponin T 120 Min [place] Troponin T C-Reactive Protein Total Protein 7.2 Albumin 4.1 Globulin 3.1 Lipase 21 TSH Urine Opiates Scre en Ur Barbiturates Sc reen Ur Phencyclidine S crn Ur Amphetamines Sc reen U Benzodiazepines Scrn Urine Cocaine Scre en U Marijuana (THC) Screen 11/22/19 11/22/19 18:16 18:16 WBC 6.5 RBC 5.00 Hgb 14.7 Hct 45.9 MCV 91.8 MCH 29.4 MCHC 32.0 RDW 12.8 Plt Count 221 MPV 11.4 H Neut % (Auto) 57.5 Lymph % (Auto) 35.8 [place] % (Auto) 5.7 Eos % (Auto) 0.2 Baso % (Auto) 0.6 Neut # (Auto) 3.7 Lymph # (Auto) 2.3 [place] # (Auto) 0.4 Eos # (Auto) 0.0 Baso # (Auto) 0.0 Nucleated RBC % (a uto) 0 Nucleated RBCs # 0.0 ESR D-Dimer Sodium Potassium Chloride Carbon Dioxide Anion Gap BUN Creatinine GFR Calculation Glucose Calculated Osmolal ity Calcium Magnesium Total Bilirubin AST ALT Alkaline Phosphata se Troponin I 6 Hour Troponin I Hi Sens Del Troponin T Baselin e Troponin T 120 Min [place] Troponin T C-Reactive Protein 3.0 Total Protein Albumin Globulin Lipase TSH 1.36 Urine Opiates Scre en Ur Barbiturates Sc reen Ur Phencyclidine S crn Ur Amphetamines Sc reen U Benzodiazepines Scrn Urine Cocaine Scre en U Marijuana (THC) Screen Vitals: Last Vital Signs Temp 98.3 F 11/23/19 04:00 Pulse 79 11/23/19 10:00 Resp 24 H 11/23/19 04:00 BP 117/76 11/23/19 10:00 Pulse Ox 98 11/23/19 04:00 Discharge Plan Discharge Patient Disposition: Home, Self-Care Condition: Stable Prescriptions: New atorvastatin 40 mg Tablet 20 mg PO BEDTIME Qty: 30 RF: 0 aspirin 81 mg Tablet,Delayed Release (Dr/Ec) 81 mg PO DAILY Qty: 30 RF: 0 isosorbide mononitrate 30 mg tablet extended release 24 hr 30 mg PO DAILY Qty: 30 RF: 0 Continued Emgality Pen 120 mg/mL Pen Injector SUBCUT RF: 0 Effexor XR 225 mg PO DAILY RF: 0 Zyrtec 10 mg Tablet 20 mg PO DAILY RF: 0 Benadryl 25 mg Capsule 25 mg PO PRN PRN (Reason: Nausea) RF: 0 Singulair 10 mg Tablet 10 mg PO QPM RF: 0 magnesium 250 mg Tablet 500 mg PO DAILY RF: 0 Compazine 10 mg PO PRN PRN (Reason: nausea) RF: 0 sumatriptan 100 mg PO DAILY PRN (Reason: Headache) RF: 0 Discharge Orders: Discharge Order (Routine); Ordered 11/23/19 Ordered By: Elias Escobar Referrals: Crystal Payan PA [Primary Care Provider] - 2 weeks (Calvin salcedo will be calling to set a hospital followup with MASON Pate to be seen in 2 weeks. If you haven't heard from them by Sunday afternoon, please give them a call at [phone]) Discharge Diet: Cardiac Discharge Activity: Resume usual activity Patient Instructions: Aspirin (By mouth), Isosorbide Mononitrate (By mouth), Atorvastatin (By mouth), Chest Pain (DC), Chest Pain Stoplight, Post Angiogram Home Care Instructions Discharge Date/Time: 11/23/19 15:38 Discharge Attestations Time Spent in Discharge Care*: greater than 30 min Specific Discharge Activities: Specific discharge activities: educating patient and discussing with counter caser/social workers/dc planners Status at Discharge: Cognitive status at discharge: cognitively intact , Behavioral status at discharge: cooperative , Functional status at discharge: independent ambulation Overall status at discharge: patient is back to baseline Quality Metrics Clinical Quality Measures During this hospital stay, did patient experience: None Coding Level of Care Code Acute Wiper Blender for Fabianag Fwd Diagnoses Chest pain R07.9 Tobacco abuse Z72.0 Prinzmetal angina I20.1
--- NOTE | 2019-11-23 14:14 | PC.CHAP ---
Pastoral Care Encounter/Spiritual Assessment Type of Contact [] Declined parts inspector visit [] Patient/Family/Request visit [] Outpatient visit [] Follow-up visit [] Physician referral [] Code/Alert [] Routine visit [] Staff referral [] Actively dying [] Patient sleeping [x] Family support [] [] Out of room [] Palliative care [] [] Receiving care in room [] Pre-surgical visit [] Trauma [] Long length of stay [] ICU visit [] Other: Relational/Emotional Strength [x] Patient feels connected with others/family/visitors/staff [] Distress [] Loneliness/isolation [] Abandonment Spirituality of Patient [x] Person of Asha [] Attends Yazidism of their Asha [x] Believes in Prayer [] Reads Bible or Roman Catholic materials [] There are Spiritual issues to be addressed Occupational Rehabilitation Aide Interventions [x] Prayer [] Active listening [] Non-anxious presence [] Spiritual/emotional support [] Crisis/trauma care [] Spiritual counseling [] Bereavement support [] Provided bereavement packet [] Provided Bible/devotional materials [] Provided toy/stuffed animal, coloring book to patient or family member [] Provided Communion [] Anointing/[place] [] Salvation [x Completed spiritual assessment [] Other: Impact on Illness or Injury [] Angry [] Fearful [] Anxious [] Often cries [] Exhaustion [] Unable to work [] Unable to attend adventist [] Unable to walk/stand [] Unable to read [] Unable to drive [] Unable to eat/drink [] Unable to sleep [] Unable to be with family [] Patient intubated [] Other: Summary Patient just completed testing, and family present. 2 sons and 4 grandchildren. Prayer was accepted by all Time spent with patient 10min
--- NOTE | 2019-11-23 14:30 | PC.NURSE ---
TR band let down per protocol no hematoma or bleeding noted patient tolerated well bandage placed and patient educated on post angiogram do's and don't's and s/s of infection patient verbalized understanding
--- NOTE | 2019-11-23 15:15 | PC.NURSE ---
patient discharged home at this time, discharge instructions given and explained patient verbalized understanding iv discontinued cath intact min bleeding noted
[2019-11-23 16:35] LABS: Chol HDL Ratio 3.35 mg/dL (0.0-4.40); Cholesterol 238 mg/dL (0-200); HDL Cholesterol 71 mg/dL (60-100); LDL Cholesterol Calculated 140 mg/dL (50-129); Triglycerides 134 mg/dL (0-150); VLDL Cholestrol Calculation 27 mg/dL (0-30)
[2019-11-23 18:28] LABS: Estmated Average Glucose 111; Hemoglobin A1C 5.5 % (4.0-6.0)
--- NOTE | 2019-11-23 21:05 | USCV_ITS ---
Nghia Lorna Age: 49 Gender: F : 1970 Exam Date: 11/23/2019 13:48 Ordering Phys: Alireza Matthews MD Technologist: Marcelle Ramachandran Exam Location: [facility] [place] Indication: Chest pain BP: 98 / 61 HR: 84 Rhythm: Sinus Technical Quality: Technically difficult study MEASUREMENTS (Male / Female) Normal Values 2D ECHO LV Diastolic Diameter PLAX 3.4 cm 4.2 - 5.9 / 3.9 - 5.3 cm LV Systolic Diameter PLAX 2.2 cm LV Chamber Size 2.6 cm IVS Diastolic Thickness 1.0 cm 0.6 - 1.0 / 0.6 - 0.9 cm IVS Systolic Thickness 1.4 cm LVPW Diastolic Thickness 1.1 cm 0.6 - 1.0 / 0.6 - 0.9 cm LVPW Systolic Thickness 1.3 cm RV Chamber Size 2.6 cm LVOT Diameter 1.9 cm LV Ejection Fraction 2D Teich 67.2 % LA Diameter 3.6 cm LA Width 2.6 cm LA Height 3.6 cm RA Width 3.3 cm RA Height 2.8 cm Aorta at Sinotubular Diameter 2.3 cm M-MODE LV Diastolic Diameter MM 3.8 cm 4.2 - 5.9 / 3.9 - 5.3 cm LV Systolic Diameter MM 2.1 cm LV Ejection Fraction MM Teich 75.9 % IVS Diastolic Thickness MM 0.8 cm 0.6 - 1.0 / 0.6 - 0.9 cm IVS Systolic Thickness MM 1.4 cm LVPW Diastolic Thickness MM 1.0 cm 0.6 - 1.0 / 0.6 - 0.9 cm LVPW Systolic Thickness MM 1.3 cm RV Diastolic Diameter MM 2.3 cm Aortic Annulus Diameter 2.4 cm LA Ao Ratio MM 1.5 MV E Point Septal Separation 0.5 cm DOPPLER AV Peak Velocity 120.0 cm/s LVOT Peak Velocity 94.0 cm/s AV Area Cont Eq vti 2.2 cm squared AV Area Cont Eq pk 2.3 cm squared MV Area PHT 2.9 cm squared Mitral E to A Ratio 1.2 MV E' Velocity 10.0 cm/s Mitral E to MV E' Ratio 7.7 Mitral E to LV E' Lateral Ratio 8.7 Mitral E to LV E' Septal Ratio 6.9 TV Peak E Velocity 64.0 cm/s Right Atrial Pressure 3.0 mmHg PV Peak Velocity 72.0 cm/s RV Acceleration Time 0.1 s RV Ejection Time 0.3 s RV AcT/ET 0.3 FINDINGS Left Ventricle Normal left ventricular cavity size. Normal left ventricular systolic function. No regional wall motion abnormalities. Left ventricular ejection fraction is estimated at 60 %. Grade I/IV diastolic dysfunction (abnormal relaxation filling pattern), normal to mildly elevated filling pressures. Right Ventricle The right ventricle is normal in size and function. RVSP could not be calculated due to incomplete tricuspid regurgitation velocity profile. Right Atrium The right atrium is normal in size. Left Atrium The left atrium is normal in size. Mitral Valve Mildly thickened mitral valve. No mitral valve stenosis. Trace mitral valve regurgitation. Aortic Valve Structurally normal aortic valve without significant sclerosis or stenosis. There is no aortic regurgitation. Tricuspid Valve Structurally normal tricuspid valve without significant stenosis or regurgitation. Pulmonic Valve Structurally normal pulmonic valve without significant stenosis. There is no pulmonic regurgitation. Pericardium Normal pericardium without effusion. Aorta Normal ascending aorta dimension. CONCLUSIONS 1-Normal left ventricular cavity size. Normal left ventricular systolic function. No regional wall motion abnormalities. Left ventricular ejection fraction is estimated at 60 %. Grade I/IV diastolic dysfunction (abnormal relaxation filling pattern), normal to mildly elevated filling pressures. 2-There is no pericardial effusion. 3-No significant valve abnormalities. 4-Right atrial pressure is around 5 mm of mercury. 5-There are no prior echocardiogram studies to compare. Azam Zarate MD (Electronically Signed) Final Date: 23 November 2019 17:14 S
== END 2019-11-23 15:38 | disposition home or self-care (01) ==
LOC: ER 19:46 → CSU 19:47
PROVIDERS: Internal Medicine Cardiovascular Disease; Admitting Provider Family Medicine; Emergency Provider Emergency Medicine; PCP Physician Assistant; Visit Provider Student in an Organized Health Care Education/Training Program
DX: R07.89 Other chest pain (principal); F17.210 Nicotine dependence, cigarettes, uncomplicated; I20.1 Angina pectoris with documented spasm; K21.9 Gastro-esophageal reflux disease without esophagitis; G43.909 Migraine, unspecified, not intractable, without status migrainosus; Z82.49 Family history of ischemic heart disease and other diseases of the circulatory system; E78.5 Hyperlipidemia, unspecified
CPT/HCPCS: 12345; 36415; 71045; 80048; 80053; 80061; 80307; 83036; 83690; 83735; 84443; 84484; 85025; 85378; 85651; 86140; 93005; 93306; 93454; 96360; 96361; 96374; 96375; 96376; 99283; 99285; C1769; C1887; C1894; G0378; J1644; J2001; J2250; J2270; J2405; J3010; J3490; J7030; Q0163; Q9967

== ENCOUNTER 2023-11-12 11:04 | Emergency (ER) | payer OTHER, SELFPAY ==
[2023-11-12 12:41] LABS: Basophils # 0.1 10^3/uL (0.0-0.1); Basophils % 0.6 %; Eosinophils # 0.1 10^3/uL (0.0-0.8); Eosinophils % 0.7 %; Hematocrit 44.7 % (36-47); Lymphocytes % 19.8 %; Mean Corpuscular Hemoglobin 28.7 pg (27-33); Mean Corpuscular Volume 89.6 fl (85-98); Mean Platelet Volume 11.6 fL (7.4-10.4); Monocytes # 0.7 10^3/uL (0.2-0.9); Monocytes % 6.6 %; Neutrophils # 7.18 10^3/uL (1.8-7.7); Nucleated Red Blood Cells % 0 %; Platelet Count 238 10^3/cmm (157-399); Red Blood Count 4.99 10^6/uL (3.85-5.65); Red Cell Distribution Width 13.2 % (12.1-15.1); White Blood Count 9.98 10^3/uL (3.29-11.43)
[2023-11-12 13:00] LABS: Alanine Aminotransferase 23 U/L (0-33); Alkaline Phosphatase 134 U/L (35-105); Anion Gap 15.7 (5-19); Aspartate Amino Transferase 20 U/L (0-32); Blood Urea Nitrogen 9 mg/dL (6-20); Calcium 9.7 mg/dL (8.5-10.5); Carbon Dioxide 23 mmol/L (22-29); Chloride 103 mmol/L (98-107); Globulin 3.5 g/dL (1.3-4.6); Glomerular Filtration Rate 74.7 mL/min (90-130); Glucose 98 mg/dL (65-115); Lipase 19 U/L (13-60); Osmolality Calculated 285 mOsm/kg (285-295); Potassium 3.7 mmol/L (3.5-5.1); Sodium 138 mmol/L (136-145); Total Bilirubin 0.4 mg/dL (0.15-1.2); Total Protein 7.5 g/dL (6.6-8.7)
== END 2023-11-12 12:40 | disposition left against medical advice (07) ==
PROVIDERS: Emergency Medicine; Emergency Provider Family Medicine; PCP Physician Assistant
DX: Z53.21 Procedure and treatment not carried out due to patient leaving prior to being seen by health care provider (principal)
CPT/HCPCS: 36415; 80053; 83690; 85025

== ENCOUNTER 2023-11-12 13:43 | Emergency (ER) | payer OTHER, SELFPAY ==
[2023-11-12 13:51] VITALS: BP 127/79; PULSE 105; RESP 16; TEMP 36.6; O2SAT 99; BMI 37.4
--- NOTE | 2023-11-12 14:33 | CT_ITS ---
WS: [id number] CT ABDOMEN AND PELVIS WITH CONTRAST HISTORY: vomiting/abd pain TECHNIQUE: Imaging performed of the abdomen and pelvis with IV contrast. Single phase imaging of the abdomen. Coronal and sagittal reformats are submitted. All CT scans at [facility] use at abdi st one of these dose optimization techniques: automated exposure control; mA and/or kV adjustment per patient size (includes targeted exams where dose is matched to clinical indication); or iterative re construction. IV CONTRAST: Omnipaque 350; 100 mL IV. Oral contrast: No DLP: 931.63 mGy.cm COMPARISON: None available. Lower thorax: Lung bases are clear. Heart is normal size. Small hiatal hernia. Liver/biliary system: Normal size with no intrahepatic dilatation. Gallbladder: Prior cholecystectomy. Pancreas: Normal size pancreas and pancreatic duct. No adjacent inflammation. Spleen: Normal size spleen. No mass or infarct. Adrenal glands: Normal. Right kidney: Normal. Left kidney: Normal. Aorta: Normal. Lymphadenopathy: None. Free fluid: None. GI tract: Stomach is mildly distended with fluid and air. There is an abnormal appearance to the stom ach antrum. There is significant submucosal edema with hyperemia of the mucosa. Marked wall thickenin g extends over a length of 5.8 cm. In the central portion of the lumen there is increased density wit h mild luminal narrowing. These findings are most consistent with a gastric ulcer although no perfora tion. There is significant inflammation. No adjacent adenopathy. The small bowel is otherwise negativ e. Prior appendectomy. There are a few scattered distal colonic diverticula. Abdominal wall: Unremarkable abdominal wall. No hernia. Pelvis: Prior hysterectomy. Bones: Unremarkable. IMPRESSION: 1. There is a significant acute inflammatory process involving the antrum of the stomach extending o kimberly a length of 5.8 cm. Consistent with gastric ulcer. There is no perforation at this time. There is significant submucosal edema. Upper endoscopy after treatment for this acute episode is recommended to exclude an underlying neoplasm. 2. Prior cholecystectomy, appendectomy and hysterectomy. 3. No free air.
--- NOTE | 2023-11-12 14:35 | ED_ITS ---
HPI - Nausea/Vomiting/Diarrhea General: Chief complaint: Nausea/Vomiting/Diarrhea Stated complaint: abd pain, N/V Time Seen by Provider: 11/12/23 14:12 Source: patient Mode of arrival: ambulatory Limitations: no limitations History of Present Illness: 53-year-old female states that she has b een having nausea vomiting along with abdominal cramping over the last 3 days. She states she has not been passing gas or having bowel movements. She is taking meds [id number] for constipation still has not had a bowel movement. Pain is minimal she denies any fever denies any worsening improving factors. Associated nausea: Yes Associated symtoms: Reports nausea; Denies chest pain, dysuria or headache(s) Review of Systems Const: Denies: fever(s), chills, body aches or change in appetite ENMT: Denies: throat pain or dental pain Card: Denies: chest pain Resp: Denies: dyspnea GI: Reports: abdominal pain, nausea, vomiting and constipation; Denies: diarrhea : Denies: dysuria Musc: Denies: neck pain or back pain Skin/Breast: Denies: rash Neuro: Denies: headache(s) PFSH ED PFSH: Medical History Prinzmetal angina Tobacco abuse Chest pain GERD (gastroesophageal reflux disease) Migraines Migraine Surgical History H/O: hysterectomy S/P cholecystectomy Hx of appendectomy Family History Other CAD (coronary artery disease) Social History Smoking and tobacco/nicotine status: current some day tobacco/nicotine user cigarettes [ Other cigarette details: 1 cigarette every few months] Alcohol intake: never Substance/Drug Use: never Physical Exam Const: COMMON NORMALS: no acute distress, patient oriented x3 and healthy appearing HENMT: COMMON NORMALS: normocephalic and atraumatic HEAD & SCALP: normocephalic and atraumatic Eye: COMMON NORMALS: Equal, round and reactive pupils present and EOMs intact bilaterally PUPIL: Yes Equal, round and reactive pupils present Neck/C-Spine: COMMON NORMALS: full ROM and supple Chest: COMMONS NORMALS: normal inspection of the chest and normal palpation of entire chest wall Resp: COMMON NORMALS: normal respiratory effort, No retractions, No use of accessory muscles and clear to auscultation bilaterally AUSCULTATION: clear to auscultation bilaterally Cardio: COMMON NORMALS: regular rate, regular rhythm and No murmurs present (Cardio) RATE: regular rate RHYTHM: regular rhythm GI: COMMON NORMALS: Normal to inspection, nondistended, normoactive bowel sounds present, Soft to palpation, non-tender and no masses PALPATION: Yes Soft to palpation Extremity: COMMON NORMALS: normal to inspection and full ROM Neuro: COMMON NORMALS: patient oriented x3, moves all extremities and no focal motor deficits Psych: COMMON NORMALS: mental status grossly normal, Normal thought process present and cooperative THOUGHT PROCESS: Normal thought process present Skin: COMMON NORMALS: no rashes or lesions noted and no wounds GENERAL SKIN EXAM: no rashes or lesions noted Course Vital Signs: Vital signs: Vital Signs Temperature 97.9 F 11/12/23 13:51 Pulse Rate 82 11/12/23 15:00 Respiratory Rate 16 11/12/23 13:51 Blood Pressure 121/77 11/12/23 15:00 Pulse Oximetry 94 11/12/23 15:00 Oxygen Delivery Me thod Room Air 11/12/23 13:51 MDM - Nausea/Vomiting/Diarrhea Medical Decision Making Patient presents here with abdominal pain along with vomiting CT did show likely gastric ulcer pain is much improved here we will start her on Protonix along with Carafate I did speak to Dr. Hudson will get patient follow-up with Dr. Hudson for likely EGD in the future she is return if her pain worsens she understands agrees to plan. Medical Records I reviewed the patient's medical records. Lab Data I reviewed the patient's lab results. Laboratory Results Urine Color Yellow (Yellow) 11/12/23 15:32 Urine Appearance Sl hazy (CLEAR) A 11/12/23 15:32 Urine pH 7 (5-7) 11/12/23 15:32 Ur Specific Miracle 1.015 (1.005-1.030) 11/12/23 15:32 Urine Protein Trace (Negative) 11/12/23 15:32 Urine Glucose (UA) Norm (Normal) 11/12/23 15:32 Urine Ketones 1+ (Negative) H 11/12/23 15:32 Urine Blood Neg (Negative) 11/12/23 15:32 Urine Nitrate Negative (Negative) 11/12/23 15:32 Urine Bilirubin Neg (Negative) 11/12/23 15:32 Urine Urobilinogen 1 mg/dL (Negative) H 11/12/23 15:32 Ur Leukocyte Esterase Trace (Negative) H 11/12/23 15:32 Urine RBC None /hpf (0-2) 11/12/23 15:32 Urine WBC 0-4 /hpf (0-5) H 11/12/23 15:32 Ur Squamous Epith Cells 10-15 /hpf (0-5) H 11/12/23 15:32 Amorphous Sediment Not Reportable 11/12/23 15:32 Urine Bacteria Trace /hpf (NONE) 11/12/23 15:32 All radiology interpretation(s) finalized by discharge Discharge Plan Discharge Patient Disposition: Home Clinical Impression: Abdominal pain Qualifiers: Abdominal location: epigastric Qualified Code(s): R10.13 - Epigastric pain Condition: Stable Prescriptions: New hydrocodone-acetaminophen 5-325 mg tablet 1 tab PO Q6H PRN (Reason: pain) Qty: 14 0RF ondansetron 4 mg tablet,disintegrating 4 mg PO Q6H PRN (Reason: nausea and vomiting) Qty: 14 0RF Protonix 40 mg tablet,delayed release (DR/EC) 40 mg PO BID Qty: 120 0RF Carafate 1 gram tablet 1 g PO BID 56 Days Qty: 112 0RF No Action Emgality Pen 120 mg/mL Pen Injector SUBCUT Rx Instructions: once monthly injection Effexor XR 225 mg PO DAILY Zyrtec 10 mg Tablet 20 mg PO DAILY Benadryl 25 mg Capsule 25 mg PO PRN PRN (Reason: Nausea) Singulair 10 mg Tablet 10 mg PO QPM magnesium 250 mg Tablet 500 mg PO DAILY Compazine 10 mg PO PRN PRN (Reason: nausea) sumatriptan 100 mg PO DAILY PRN (Reason: Headache) atorvastatin 40 mg Tablet 20 mg PO BEDTIME Qty: 30 0RF aspirin 81 mg Tablet,Delayed Release (Dr/Ec) 81 mg PO DAILY Qty: 30 0RF isosorbide mononitrate 30 mg tablet extended release 24 hr 30 mg PO DAILY Qty: 30 0RF Discharge Orders: Discharge ED (Routine); Ordered 11/12/23 Ordered By: Ary Barr Referrals: Jared Hudson DO [Physician] - 1-3 days Crystal Payan PA [Primary Care Provider] - Discharge Diet: Advance as tolerated Discharge Activity: Resume usual activity Patient Instructions: Abdominal Pain (ED), Opioid Safety, Pain Management Coding Level of Care Code ED Account Support Analyst for Aylin Stephens
[2023-11-12] MEDS: sodium chloride 0.9% 1,000 ML 999 ML IV (14:53)
[2023-11-12] MEDS: ondansetron 2 mg/ML SDV 2 mL 4 MG IVP (14:54)
[2023-11-12 15:00] VITALS: BP 121/77; PULSE 82; O2SAT 94
[2023-11-12] MEDS: iohexol 350 mg/mL 500 mL Btl (per mL) IV (15:32)
[2023-11-12 16:21] LABS: Add Urine Microscopic? YES; Bilirubin Urine Neg (Negative); Blood Urine Neg (Negative); Glucose Urine UA Norm (Normal); Ketones Urine 1+ (Negative); Leukocyte Esterase Urine Trace (Negative); Nitrate Urine Negative (Negative); Protein Urine Trace (Negative); Specific Gravity, Urine 1.015 (1.005-1.030); Urine Appearance SL Hazy (CLEAR); Urine Color Yellow (Yellow); Urobilinogen Urine 1 mg/dL (Negative); pH Urine 7 (5-7)
[2023-11-12 16:22] LABS: Add Urine Culture? No; Bacteria Urine TRACE /hpf; WBC Urine 0-4 /hpf (0-5)
[2023-11-12 17:05] VITALS: BP 128/79; PULSE 108; O2SAT 98
--- NOTE | 2023-11-14 08:09 | DCPLANNER ---
Message sent to General surgery for a follow up on abdominal pain
== END 2023-11-12 17:07 | disposition home or self-care (01) ==
PROVIDERS: Emergency Provider Emergency Medicine; PCP Physician Assistant
DX: R10.13 Epigastric pain (principal); Z79.82 Long term (current) use of aspirin; F17.210 Nicotine dependence, cigarettes, uncomplicated
CPT/HCPCS: 74177; 81001; 96374; 99285; J2405; J7030; Q9967